=== PATIENT | male | born 1950 | race Caucasian/White ===

== ENCOUNTER → 2021-10-31 11:31 | Outpatient (CLI) | payer MEDICARE, OTHER, SELFPAY ==
--- NOTE | 2021-10-31 11:39 | DI.RAD.S_ITS ---
PROCEDURE: XR LUMBAR SPINE MIN 4V INDICATIONS: BACK PAIN TECHNIQUE: 5 views of the lumbar spine were acquired, including bilateral oblique views. COMPARISON: [facility], , SPINE LUMB 2 OR 3VW, 09/23/2013, 13:28. FINDINGS: Bones: 5 nonrib-bearing vertebrae are present. There is normal bony alignment. No vertebral body compression fractures. No suspicious bony lesions. Mild degenerative disc changes noted throughout the lumbar spine. Mild L4-L5 and L5-S1 facet arthropathy. Soft tissues: Overlying bowel gas pattern is normal. Coarse calcifications project over the lower midline of the pelvis possibly related to the prostate gland. Oblique images: No pars defects. IMPRESSION: 1. Multilevel degenerative disc disease. 2. Multilevel facet arthropathy. 3. No fracture. No acute osseous lesion. If symptoms and/or clinical suspicion for pathology persists, evaluation with MRI should be considered for further assessment. Dictated by: Barbara Madison MD, PhD on 10/31/2021 at 13:32 Approved by: Barbara Madison MD, PhD on 10/31/2021 at 13:33
== END ==
PROVIDERS: Referring Provider Physical Medicine & Rehabilitation; Visit Provider Physical Medicine & Rehabilitation
DX: M47.26 Other spondylosis with radiculopathy, lumbar region (principal); M47.27 Other spondylosis with radiculopathy, lumbosacral region; M51.16 Intervertebral disc disorders with radiculopathy, lumbar region; M99.04 Segmental and somatic dysfunction of sacral region; M54.9 Dorsalgia, unspecified
CPT/HCPCS: 72110; 99214

== ENCOUNTER → 2021-11-12 11:13 | Outpatient (CLI) | payer MEDICARE, OTHER, SELFPAY ==
--- NOTE | 2021-11-12 11:15 | DI.MRI.S_ITS ---
PROCEDURE: MR LUMBAR SPINE WO CON INDICATIONS: right LE radicu L5 TECHNIQUE: Noncontrast sagittal T1 spin echo and T2 fast echo, sagittal STIR, and T2 fast spin echo through the lumbar spine. In cases with scoliosis, additional coronal T2 fast spin echo may be performed. COMPARISON: [facility], CR, XR LUMBAR SPINE MIN 4V, 10/31/2021, 11:40. FINDINGS: Image quality: Excellent. Alignment and Curvature: There is normal bony alignment. Bone Marrow: Marrow is of normal overall signal. No acute vertebral body compression fractures. Spinal Cord: Conus medullaris terminates at the L1 level. Visualized cord demonstrates normal signal and size. Paraspinous Soft Tissues: No paravertebral masses. Discs: Mild multilevel disc desiccation is present. L1-L2: Minimal disc bulge without spinal stenosis or foraminal narrowing. Minimal epidural lipomatosis as well as mild facet and ligamentum flavum hypertrophy. L2-L3: Minimal disc bulge without spinal stenosis. Minimal right foraminal narrowing with facet and ligamentum flavum hypertrophy. Minimal epidural lipomatosis. L3-L4: Mild disc bulge without spinal stenosis. [id number] left and mild right foraminal narrowing with facet and ligamentum flavum hypertrophy. Epidural lipomatosis is also present. L4-L5: Mild disc bulge with minimal canal narrowing. Moderate bilateral foraminal narrowing with facet and ligamentum flavum hypertrophy. Minimal epidural lipomatosis. L5-S1: Minimal disc bulge without spinal stenosis. Moderate left and [id number] right foraminal narrowing with facet hypertrophy. IMPRESSION: Multilevel disc bulges. Minimal spinal stenosis at L4-5 secondary to disc bulge with contributing effect of facet/ligamentum flavum arthropathy. Moderate bilateral foraminal narrowing at L4-5 and L5-S1 secondary to facet arthropathy. Dictated by: Nilsa Cisneros M.D. on 11/12/2021 at 12:07 Approved by: Nilsa Cisneros M.D. on 11/12/2021 at 12:10
== END ==
PROVIDERS: PCP Family Medicine; Referring Provider Physical Medicine & Rehabilitation; Visit Provider Physical Medicine & Rehabilitation
DX: M51.16 Intervertebral disc disorders with radiculopathy, lumbar region (principal); M48.061 Spinal stenosis, lumbar region without neurogenic claudication; M48.07 Spinal stenosis, lumbosacral region; M47.26 Other spondylosis with radiculopathy, lumbar region; M47.27 Other spondylosis with radiculopathy, lumbosacral region
CPT/HCPCS: 72148

== ENCOUNTER → 2021-12-03 10:21 | Outpatient (CLI) | payer MEDICARE, OTHER, SELFPAY ==
[2021-12-03 11:33] LABS: COVID19 -Nasal RAPID Negative (Negative)
== END ==
PROVIDERS: PCP Family Medicine; Visit Provider Physical Medicine & Rehabilitation
DX: Z20.822 Contact with and (suspected) exposure to COVID-19 (principal)
CPT/HCPCS: 87635; C9803

== ENCOUNTER 2021-12-04 12:38 | Outpatient (CLI) | payer MEDICARE, OTHER, SELFPAY ==
[2021-12-04] VITALS (8 sets, daily range): BP systolic 133–162; BP diastolic 65–91; PULSE 69–83; RESP 14–20; TEMP 37.2; O2SAT 95–98
--- NOTE | 2021-12-04 13:30 | DI.RAD.S_ITS ---
PROCEDURE: PAIN L/SI FACET INJ/BLK 1STL INDICATIONS: SPONDYLOSIS COMPARISON: [facility], MR, MR LUMBAR SPINE WO CON, 11/12/2021, 11:34. [facility], CR, XR LUMBAR SPINE MIN 4V, 10/31/2021, 11:40. FINDINGS: Fluoroscopic spot filming was performed to verify placement of spinal needles on the right at the L3-L4, L4-L5, and L5-S1 levels, as labeled on the films. Appropriate location of the needle tips was confirmed by injection of iodinated contrast. IMPRESSION: Intraprocedural examination demonstrating appropriate positions of the needles. Dictated by: Gianni German M.D. on 12/04/2021 at 13:39 Approved by: Gianni German M.D. on 12/04/2021 at 13:40
[2021-12-04] MEDS: MIDAZOLAM 2 MG/2 ML VIAL IV (13:55)
[2021-12-04] MEDS: IOPAMIDOL 15 ML VIAL 3 ML INJ (14:02)
[2021-12-04] MEDS: BETAMETHASONE 30 MG/5 ML MDV (14:03)
[2021-12-04] MEDS: BUPIVACAINE 0.5% (PF) VIAL 5 ML INJ (14:03)
--- NOTE | 2021-12-04 14:08 | P.PCN_ITS ---
Date/Time/Diagnoses Date of procedure: 12/04/21 Time of procedure: 14:08 Pre-procedure diagnosis: 1. FACET ARTHROPATHY 2. AXIAL LBP 3. MULTILEVEL DDD Post-procedure diagnosis: same Procedure Notes Procedure: 1. FLUOROSCOPICALLY GUIDED CONTRAST CONTROLLED FACET JOINT INJECTIONS RIGHT L3/4, L4/5, L5/S1 Indications: Junaid is referred by Dr. Barker for treatment of Axial LBP Physician: Tom Mascorro Total Fluoroscopy time (seconds): 8 Total sedation minutes: 12 Complications: none Procedure in detail & Post-procedure care: FINDINGS Multilevel Facet Arthropathy with Clinically significant axial LBP DESCRIPTION OF PROCEDURE Fluoroscopically guided, contrast-controlled right L3/4, L4/5, L5/S1 facet joint injections. Following review of allergy and review of potential side effects and complications, including, but not necessarily limited to, infection, allergic reaction, local tissue breakdown, stroke, temporary or permanent nerve injury, paralysis, and possible , the patient indicated that the patient understood and agreed to proceed. An informed consent document was signed by the patient, witnessed by a nurse, and placed in the patient's chart. Additionally, other treatment options including medications, modalities, and physical therapy were reviewed with the patient. After review of previous anaesthesic history and IV conscious sedation the patient was deemed safe to proceed with today?s procedure with IV conscious sedation as ASA class II designation. Safety time-out was performed to confirm patient ID, procedure to be performed and site of procedure. IV sedation was accomplished with a combination of 2mg of Versed was administered by the RN after DO order, titrated to patient comfort during the course of the procedure while the patient remained responsive to all verbal commands. In the prone position, following sterile prep and drape of the lumbar region, the posterior aspect of the right L3/4, L4/5, L5/S1 facet joints were identified fluoroscopically. The skin was anesthetized via a 25-gauge 1.5-inch needle with 1% lidocaine solution into the corresponding facet joints. At this point, a 22- gauge 3.5-inch spinal needle was atraumatically introduced and advanced under fluoroscopic guidance into the corresponding facet joints. Following negative aspiration, injections of approximately 0.2-cc of Isovue 200 confirmed interarticular placement without vascular uptake. Radiological data, including multiple fluoroscopic views of the lumbosacral spine, reveal a spinal needle at the right L3/4, L4/5, L5/S1 facet joints. Subsequent views show flow of contrast material both superiorly and inferiorly within the joint space without vascular or intrathecal uptake. At this point, a total of 0.5cc including a mixture of 0.25cc Marcaine and 0.25cc betamethasone was injected without complication into each of the corresponding facet joints. The procedure tolerated the procedure well without signs or symptoms of complications prior to transfer to the recovery area continued monitoring without incident. The patient was then transferred to the recovery area where they were observed for an appropriate period of time after the injection. The patient reported a VAS score of 7 prior to the procedure and a post-procedure VAS of 0. POST OP INSTRUCTIONS The patient was provided a Pain Log to continue to record their response to the target-specific procedure prior to follow-up visit with their referring physician. Additionally, specific post-injection care instructions and a contact number to our office were provided if concerns arise regarding possible complications associated with the procedure are suspected.
== END 2021-12-04 14:27 | disposition home or self-care (01) ==
LOC: RAD 12:41
PROVIDERS: PCP Family Medicine; Referring Provider Physical Medicine & Rehabilitation; Visit Provider Physical Medicine & Rehabilitation
DX: M47.816 Spondylosis without myelopathy or radiculopathy, lumbar region (principal); M47.817 Spondylosis without myelopathy or radiculopathy, lumbosacral region; M51.36 Other intervertebral disc degeneration, lumbar region; M51.37 Other intervertebral disc degeneration, lumbosacral region
CPT/HCPCS: 64493; 64494; 64495; 99152; J0702; J2250

== ENCOUNTER → 2022-04-22 10:11 | Outpatient (CLI) | payer MEDICARE, OTHER, SELFPAY ==
[2022-04-22 13:44] LABS: COVID19 -Nasal RAPID Negative (Negative)
== END ==
PROVIDERS: PCP Family Medicine; Visit Provider Physical Medicine & Rehabilitation
DX: Z20.822 Contact with and (suspected) exposure to COVID-19 (principal)
CPT/HCPCS: 87635; C9803

== ENCOUNTER 2022-04-23 09:08 | Outpatient (CLI) | payer MEDICARE, OTHER, SELFPAY ==
[2022-04-23] VITALS (9 sets, daily range): BP systolic 122–150; BP diastolic 61–86; PULSE 48–54; RESP 14–24; TEMP 36.4; O2SAT 96–99
--- NOTE | 2022-04-23 09:11 | DI.RAD.S_ITS ---
PROCEDURE: PAIN SI JOINT INJECTION INDICATIONS: SACROILIAC DISORDER COMPARISON: [facility], XA, PAIN L/SI FACET INJ/BLK 1STL, 12/04/2021, 13:59. [facility], CR, XR LUMBAR SPINE MIN 4V, 10/31/2021, 11:40. [facility], RG, XR PELVIS 1V, 07/03/2021, 11:09. FINDINGS: On these intraprocedural images, there is a spinal needle seen overlying the inferior aspect of the right sacroiliac joint. Appropriate position of the tip of the needle was confirmed by injection of a small amount of iodinated contrast. IMPRESSION: Successful sacroiliac joint injection. Dictated by: Gianni German M.D. on 04/23/2022 at 9:58 Approved by: Gianni German M.D. on 04/23/2022 at 9:58
[2022-04-23] MEDS: MIDAZOLAM 2 MG/2 ML VIAL IV (10:18)
[2022-04-23] MEDS: BUPIVACAINE 0.5% (PF) VIAL 2 ML INJ (10:21)
[2022-04-23] MEDS: IOPAMIDOL 15 ML VIAL 3 ML INJ (10:21)
[2022-04-23] MEDS: BETAMETHASONE 30 MG/5 ML MDV 12 MG INJ (10:22)
--- NOTE | 2022-04-23 10:31 | P.PCN_ITS ---
Date/Time/Diagnoses Date of procedure: 04/23/22 Time of procedure: 10:31 Pre-procedure diagnosis: Sacroiliac joint pain/DJD Post-procedure diagnosis: same Procedure Notes Procedure: Fluoroscopically guided contrast controlled right sacroiliac joint injection Indications: Junaid is referred by Dr. Barker for treatment of right sacroiliac joint DJD Physician: Tom Mascorro Total Fluoroscopy time (seconds): 7 Total sedation minutes: 8 Complications: none Procedure in detail & Post-procedure care: DESCRIPTION OF PROCEDURE Fluoroscopically guided, contrast controlled right sacroiliac joint injection Following review of allergies and review of potential side effects and complications, including, but not necessarily limited to, infection, allergic reaction, local tissue breakdown, temporary as well as permanent nerve injury, paralysis, stroke and possible , the patient indicated that they understood and agreed to proceed. An informed consent was signed by the patient, witnessed by a nurse, and placed in the patient's chart. Additionally, other treatment options including modalities, medications, and physical therapy were reviewed with the patient. After review of previous anaesthesic history and IV conscious sedation the patient was deemed safe to proceed with today?s procedure with IV conscious sedation as ASA class II designation. Safety time-out was performed to confirm patient ID, procedure to be performed and site of procedure. IV sedation was accomplished with a combination of 2mg of Versed was administered by the RN after DO order, titrated to patient comfort during the course of the procedure while the patient remained responsive to all verbal commands In the prone position following sterile prep and drape of the pelvic region, the hyper lucency on in the inferior aspect of the sacroiliac joint was identified fluoroscopically the skin was anesthetized be a 25 gauge 1 eventual with approximately 2 cc of 1% lidocaine solution. At this point, a 22 gauge 3 in sp inal needle was atraumatically introduced and advanced under fluoroscopic guidance into the inferior aspect of the right sacroiliac joint. Following negative aspiration, approximately 0.3cc of Isovue-300 was injected confirming intra-articular placement without vascular uptake. Radiographic data, including multiple fluoroscopic views of the pelvis, reveals a spinal needle in the sacroiliac joint hyper lucent zone. Subsequent view show flow contrast tear superiorly and inferiorly within the joint capsule without vascular intrathecal uptake. At this point a total of 1cc of 0.5% Marcaine was combined with 1cc of 6 mg of betamethasone was injected without incident. The procedure tolerated the procedure well without signs or symptoms of complications prior to transfer to the recovery area continued monitoring without incident. The patient was then transferred to the recovery area with a bur observed for an appropriate time after the injection. The patient reverted a vas score of 7 prior to the procedure and post-procedure vas of 1. POSTOP INSTRUCTIONS The patient was provided with a pain like to continue to record the patient's response to the target specific procedure prior to the patient's follow-up visit with the referring physician. Additionally, specific post injection care instructions and a contact number to our office were provided if concerns arise regarding the possible complications associated with procedure are suspected.
== END 2022-04-23 10:50 | disposition home or self-care (01) ==
LOC: RAD 09:10
PROVIDERS: PCP Family Medicine; Referring Provider Physical Medicine & Rehabilitation; Visit Provider Physical Medicine & Rehabilitation
DX: M53.3 Sacrococcygeal disorders, not elsewhere classified (principal)
CPT/HCPCS: 27096; J0702; J2250

== ENCOUNTER → 2022-11-09 11:21 | Outpatient (CLI) | payer MEDICARE, OTHER, SELFPAY ==
--- NOTE | 2022-11-09 | DI.MRI.S_ITS ---
PROCEDURE: MR HAND RT WO CON INDICATIONS: Unilateral primary osteoarthritis of first carpome TECHNIQUE: Noncontrast coronal T1 spin echo and T2 fast spin echo with fat saturation, axial proton density fast spin echo and T2 fast spin echo with fat saturation, sagittal T1 spin echo and STIR through the hand and fingers. COMPARISON: [facility], CR, XR HAND 3+ VIEWS RIGHT, 10/04/2022, 9:32. [facility], CR, XR HAND 1 OR 2 VIEWS RIGHT, 10/15/2022, 10:24. FINDINGS: Image quality: Excellent. Bones: No acute trabecular bone injury or fracture. Mildly irregular appearance of the triquetrum, hamate, and 5th metacarpal base, which is likely related to remote prior trauma. Carpal bones are normally aligned. At there is full-thickness cartilage loss throughout the 1st carpometacarpal joint with subchondral cystic changes and subchondral edema as well as marginal osteophyte formation and mild remodeling of the articular surfaces. Moderate triscaphe osteoarthrosis is present. Scattered moderate degenerative changes are seen in the interphalangeal joints of the fingers. A small joint effusion is seen at the 2nd metacarpophalangeal joint. Soft tissues: Mild tendinosis of the 1st extensor compartment tendons is noted. There is also mild tendinosis of the extensor carpi ulnaris tendon. The remaining extensor compartment tendon compartments are grossly intact. The flexor and extensor tendons throughout the remainder of the hand are intact. The radial collateral ligament at the 2nd metacarpophalangeal joint appears thickened and intermediate in signal intensity. The ulnar collateral ligament is intact. The remaining visualized ligaments in the hand are intact. Visualized muscles demonstrate normal bulk and internal signal. No intramuscular masses identified. No ganglion cysts. IMPRESSION: 1. Severe 1st carpometacarpal joint osteoarthrosis. Moderate degenerative changes at the triscaphe joint and throughout the interphalangeal joints of the fingers. 2. Thickening and intermediate signal intensity of the radial collateral ligament at the 2nd metacarpophalangeal joint is suspicious for an acute or subacute grade 1-2 sprain. There is surrounding soft tissue edema and a 2nd metacarpophalangeal joint effusion. 3. Probable chronic posttraumatic changes at the ulnar aspect of the wrist involving the 5th carpometacarpal joint and the triquetrum with [id number] superimposed degenerative changes. No acute osseous fracture identified. 4. Mild extensor pollicis brevis and abductor pollicis longus tendinosis. Mild extensor carpi ulnaris tendinosis. Approved by: Rboerto Choi M.D. on 11/12/2022 at 9:31
== END ==
PROVIDERS: PCP Family Medicine; Referring Provider Orthopaedic Surgery; Visit Provider Orthopaedic Surgery
DX: M18.11 Unilateral primary osteoarthritis of first carpometacarpal joint, right hand (principal); M25.441 Effusion, right hand
CPT/HCPCS: 73218

== ENCOUNTER 2023-04-08 10:22 | Outpatient (CLI) | payer MEDICARE, OTHER, SELFPAY ==
[2023-04-08] VITALS (8 sets, daily range): BP systolic 154–186; BP diastolic 70–88; PULSE 56–62; RESP 16–24; TEMP 36.5; O2SAT 95–97
--- NOTE | 2023-04-08 10:23 | DI.RAD.S_ITS ---
PROCEDURE: PAIN L/SI FACET INJ/BLK 1STL INDICATIONS: FACET ARTHROPATHY COMPARISON: [facility], , PAIN L/SI FACET INJ/BLK 1STL, 12/04/2021, 13:59. FINDINGS: Fluoroscopic spot filming was performed to verify placement of spinal needles on the right at the L3, L4, L5, and S1 levels, as labeled on the films. Appropriate location of the needle tips was confirmed by injection of iodinated contrast. IMPRESSION: Intraprocedural examination demonstrating appropriate positions of the needles. Dictated by: Gianni German M.D. on 04/08/2023 at 19:54 Approved by: Gianni German M.D. on 04/08/2023 at 19:55
[2023-04-08] MEDS: MIDAZOLAM 2 MG/2 ML VIAL IV (11:55)
[2023-04-08] MEDS: IOPAMIDOL 15 ML VIAL 3 ML INJ (12:00)
[2023-04-08] MEDS: BUPIVACAINE 0.5% (PF) 10 ML VIAL 2 ML INJ (12:00)
--- NOTE | 2023-04-08 12:17 | P.PCN_ITS ---
Date/Time/Diagnoses Date of procedure: 04/08/23 Time of procedure: 12:17 Pre-procedure diagnosis: 1. FACET ARTHROPATHY Post-procedure diagnosis: same Procedure Notes Procedure: 1. Right L3, L4, L5 and S1 MB BLOCKS LA Indications: David is referred by LEE Mora for treatment of Right Axial LBP. Physician: Tom Mascorro Total Fluoroscopy time (seconds): 7 Total sedation minutes: 16 Complications: none Procedure in detail & Post-procedure care: DESCRIPTION OF PROCEDURE Fluoroscopically guided, contrast-controlled right L3, L4, L5 and S1 medial branch blocks with 0.5cc of 0.5% Marcaine. Following review of allergy and review of potential side effects and complications, including, but not necessarily limited to, infection, allergic reaction, local tissue breakdown, nerve injury, paralysis, stroke and possible , the patient indicated that the patient understood and agreed to proceed. An informed consent document was signed by the patient, witnessed by a nurse, and placed in the patient's chart. After review of previous anaesthesic history and IV conscious sedation the patient was deemed safe to proceed with today?s procedure with IV conscious sedation as ASA class II designation. Safety time-out was performed to confirm patient ID, procedure to be performed and site of procedure. IV sedation was accomplished with a combination of 2mg of Versed was administered by the RN af ter DO order, titrated to patient comfort during the course of the procedure while the patient remained responsive to all verbal commands In the prone position, following sterile prep and drape of the lumbar region, the right L3, L4, L5 and S1 anatomical location of the medial branch of the dorsal ramus was identified fluoroscopically. Subsequently an anesthetic skin wheal using 1% lidocaine solution was initiated at each of the anatomical spots. Subsequently then a 22-gauge 3.5-inch spinal needle was atraumatically introduced and advanced under fluoroscopic guidance at each of the corresponding sites at the right L3, L4, L5 and S1 MB. After negative aspiration, 0.2cc of Isovue 200 was injected, confirming placement without vascular or intrathecal uptake. Subsequently then 0.5cc of 0.5% Marcaine solution was injected at each of the corresponding sites at the right L3, L4, L5 and S1 medial branch locations. The patient tolerated the procedure well without signs or symptoms of complications. The procedure tolerated the procedure well without signs or symptoms of complications prior to transfer to the recovery area continued monitoring without incident. Post-procedure, the patient was monitored initiating provocative activities to measure the amount of relief from block of the facetogenic pain. The patient reported a VAS of 7 prior to the procedure and a post-procedure VAS of 1. It has been a pleasure to assist in the diagnostic and therapeutic care of your patient. POST OP INSTRUCTIONS The patient was provided with a Pain Log to complete over the next several hours and subsequent days prior to the patient's follow up with the ordering physician. If the patient has physiological chemist relief to the solution applied, then they may be a candidate for medial branch rhizotomy. The patient is aware, was provided, once again, with a Pain Log and will follow up with the referring physician for review and clinical correlation.
== END 2023-04-08 12:32 | disposition home or self-care (01) ==
LOC: RAD 10:22
PROVIDERS: PCP Nurse Practitioner Family; Referring Provider Physical Medicine & Rehabilitation; Visit Provider Physical Medicine & Rehabilitation
DX: M47.816 Spondylosis without myelopathy or radiculopathy, lumbar region (principal); M47.817 Spondylosis without myelopathy or radiculopathy, lumbosacral region
CPT/HCPCS: 64493; 64494; 64495; 99152; J2250

== ENCOUNTER 2023-06-03 12:23 | Outpatient (CLI) | payer MEDICARE, OTHER, SELFPAY ==
[2023-06-03] VITALS (8 sets, daily range): BP systolic 128–164; BP diastolic 68–88; PULSE 64–87; RESP 11–20; TEMP 36.2; O2SAT 94–96
--- NOTE | 2023-06-03 12:24 | DI.RAD.S_ITS ---
PROCEDURE: PAIN L/SI FACET INJ/BLK 1STL INDICATIONS: SPONDYLOSIS COMPARISON: [facility], , PAIN L/SI FACET INJ/BLK 1STL, 04/08/2023, 12:01. FINDINGS: Fluoroscopic spot filming was performed to verify placement of spinal needles at the right L3, L4, L5 and S1 pedicle level(s), as labeled on the films. Appropriate location(s) of the needle tip(s) was confirmed by injection of iodinated contrast. IMPRESSION: Access needles positioned for right L3, L4, L5 and S1 medial branch block. Dictated by: Barbara Madison MD, PhD on 06/03/2023 at 14:52 Approved by: Barbara Madison MD, PhD on 06/03/2023 at 14:52
[2023-06-03] MEDS: MIDAZOLAM 2 MG/2 ML VIAL IV (14:13)
[2023-06-03] MEDS: LIDOCAINE 2% INJ SDV 5ML 2 ML INJ (14:22)
[2023-06-03] MEDS: iopamidoL 15 ML VIAL 3 ML INJ (14:22)
--- NOTE | 2023-06-03 14:29 | PM.PROC.IR.1 ---
Date/Time/Diagnoses Date of procedure: 06/03/23 Time of procedure: 14:29 Pre-procedure diagnosis: 1. FACET ARTHROPATHY Post-procedure diagnosis: same Procedure Notes Procedure: 1. Right L3, L4, L5 and S1 MB BLOCKS LA Indications: David is referred by LEE Mora for treatment of Right Axial LBP. Physician: Tom Mascorro Total Fluoroscopy time (seconds): 7 Total sedation minutes: 11 Complications: none Procedure in detail & Post-procedure care: DESCRIPTION OF PROCEDURE Fluoroscopically guided, contrast-controlled right L3, L4, L5 and S1 medial branch blocks with 0.5cc of 0.5% Marcaine. Following review of allergy and review of potential side effects and complications, including, but not necessarily limited to, infection, allergic reaction, local tissue breakdown, nerve injury, paralysis, stroke and possible , the patient indicated that the patient understood and agreed to proceed. An informed consent document was signed by the patient, witnessed by a nurse, and placed in the patient's chart. After review of previous anaesthesic history and IV conscious sedation the patient was deemed safe to proceed with today?s procedure with IV conscious sedation as ASA class II designation. Safety time-out was performed to confirm patient ID, procedure to be performed and site of procedure. IV sedation was accomplished with a combination of 2mg of Versed was administered by the RN after DO order, titrated to patient comfort during the course of the procedure while the patient remained responsive to all verbal commands In the prone position, following sterile prep and drape of the lumbar region, the right L3, L4, L5 and S1 anatomical location of the medial branch of the dorsal ramus was identified fluoroscopically. Subsequently an anesthetic skin wheal using 1% lidocaine solution was initiated at each of the anatomical spots. Subsequently then a 22-gauge 3.5-inch spinal needle was atraumatically introduced and advanced under fluoroscopic guidance at each of the corresponding sites at the right L3, L4, L5 and S1 MB. After negative aspiration, 0.2 cc of Isovue 200 was injected, confirming placement without vascular or intrathecal uptake. Subsequently then 0.5 cc of 0.5% Marcaine solution was injected at each of the corresponding sites at the right L3, L4, L5 and S1 medial branch locations. The patient tolerated the procedure well without signs or symptoms of complications. The procedure tolerated the procedure well without signs or symptoms of complications prior to transfer to the recovery area continued monitoring without incident. Post-procedure, the patient was monitored initiating provocative activities to measure the amount of relief from block of the facetogenic pain. The patient reported a VAS of 7 prior to the procedure and a post-procedure VAS of 1. It has been a pleasure to assist in the diagnostic and therapeutic care of your patient. POST OP INSTRUCTIONS The patient was provided with a Pain Log to complete over the next several hours and subsequent days prior to the patient's follow up with the ordering physician. If the patient has injection mold technician relief to the solution applied, then they may be a candidate for medial branch rhizotomy. The patient is aware, was provided, once again, with a Pain Log and will follow up with the referring physician for review and clinical correlation.
== END 2023-06-03 14:50 | disposition home or self-care (01) ==
PROVIDERS: PCP Nurse Practitioner Family; Referring Provider Physical Medicine & Rehabilitation; Visit Provider Physical Medicine & Rehabilitation
DX: M47.816 Spondylosis without myelopathy or radiculopathy, lumbar region (principal); M47.817 Spondylosis without myelopathy or radiculopathy, lumbosacral region
CPT/HCPCS: 64493; 64494; 64495; 99152; J2250

== ENCOUNTER 2023-07-24 07:11 | Outpatient (CLI) | payer MEDICARE, OTHER, SELFPAY ==
[2023-07-24] VITALS (12 sets, daily range): BP systolic 111–151; BP diastolic 62–116; PULSE 59–69; RESP 14–20; TEMP 36.7; O2SAT 95–98
--- NOTE | 2023-07-24 08:00 | DI.RAD.S_ITS ---
PROCEDURE: PAIN L/S MED/LAT N RFA INDICATIONS: spondylosis COMPARISON: [facility], XR LUMBAR SPINE MIN 4V, 10/31/2021, 11:40. FINDINGS: Fluoroscopic spot filming was performed to verify placement of spinal needles at the right L3-S1 level(s), as labeled on the films. Appropriate location(s) of the needle tip(s) was confirmed by injection of iodinated contrast. IMPRESSION: Intraoperative guidance provided. Dictated by: Dhruv Todd M.D. on 07/24/2023 at 11:27 Approved by: Dhruv Todd M.D. on 07/24/2023 at 11:29
[2023-07-24] MEDS: MIDAZOLAM 2 MG/2 ML VIAL IV (08:02)
[2023-07-24] MEDS: fentaNYL 100 MCG/2 ML INJ 50 MCG IV ×2 (08:08→08:20)
[2023-07-24] MEDS: BUPIVACAINE 0.5% (PF) 10 ML VIAL 5 ML INJ (08:11)
[2023-07-24] MEDS: LIDOCAINE 1% 20 ML 5 ML INJ (08:13)
--- NOTE | 2023-07-24 08:37 | P.PCN_ITS ---
Date/Time/Diagnoses Date of procedure: 07/24/23 Time of procedure: 08:37 Pre-procedure diagnosis: 1. RECALCITRANT FACET ARTHROPATHY Post-procedure diagnosis: same Procedure Notes Procedure: 1. RIGHT L3, L4 AND L5 MEDIAL BRANCH RADIOFREQUENCY NEUROTOMY AND RIGHT S1 DORSAL RAMUS BRANCH RADIOFREQUENCY NEUROTOMY Indications: David is referred by LEE Mora for treatment of facet arthropathy. Physician: Tom Mascorro Total Fluoroscopy time (seconds): 18 Total sedation minutes: 30 Complications: none Procedure in detail & Post-procedure care: DESCRIPTION OF PROCEDURE Right L4 and L5 medial branch radiofrequency neurotomy and right S1 dorsal ramus branch radiofrequency neurotomy under fluoroscopy with conscious sedation. The patient is well known to this clinic having undergone previous facet in jections with good but temporary relief. The patient has experienced appropriate, concordant relief with previous facet and median branch blocks but the patient's pain has been recalcitrant to further conservative measures. Therefore, based upon the patient's relief and persistent symptoms, the patient is considered an appropriate candidate for facet rhizotomy. All of the patient's questions regarding the risks versus benefits of the procedure, including, but not limited to, bleeding, infection, temporary as well as lasting nerve injury, paralysis, stroke, and , as well treatment alternatives were answered to satisfaction. After review of previous anaesthesic history and IV conscious sedation the patient was deemed safe to proceed with today?s procedure with IV conscious sedation as ASA class II designation. Safety time-out was performed to confirm patient ID, procedure to be performed and site of procedure. IV sedation was accomplished with a combination of 2mg of Versed and 100mcg of Fentanyl was administered by the RN after DO order, titrated to patient comfort during the course of the procedure while the patient remained responsive to all verbal commands. After obtaining informed consent, denial of pertinent drug allergies, as well as being made aware of the potential risks of bleeding, infection, spinal cord trauma, paralysis, temporary and permanent nerve damage, seizure, stroke, and possible , the patient was brought to the fluoroscopy suite and positioned prone on the fluoroscopy table. The lumbar region was prepped with Betadine and covered with a fenestrated drape in the usual sterile fashion. Appropriate monitors applied including pulse oximeter, pulse, and blood pressure for regular monitoring throughout the procedure. After local infiltration using 1% lidocaine, under fluoroscopic guidance, a 10- cm RF insulated needle with a 10-mm active tip was positioned parallel to the junction of the right sacral ala and the superior articulating process where the S1 dorsal ramus resides. Needle placement was confirmed with sensory stimulation at 50 Hz, with motor stimulation of .5v on the right which produced local stimulation without radicular component. The stimulation was then increased to 2v with, once again, only local multifidus stimulation without radicular component. This was then followed by two discreet lesions performed at 80 degrees Celsius for 90 seconds each. The needle was then removed and the identical procedure was performed along the length of the right L5 medial branch with motor stimulation at .7v on the right. The identical procedure was once again performed along the length of the right L4 medial branch with motor stimulation of .5v on the right. The identical procedure was once again performed along the length of the right L3 medial branch with motor stimulation of .5v on the right. The patient tolerated the procedure well without signs or symptoms of complications prior to transfer to the recovery area continued monitoring without incident. The patient was then transferred to the recovery area where they were observed for an appropriate period of time after the injection. The patient was then transferred to the recovery area where they were observed for an appropriate period of time after the injection. The patient reported a VAS score of 8 prior to the procedure and a post-procedur e VAS of 1. POST OP INSTRUCTIONS The patient was provided a Pain Log to continue to record the patient's response to the target-specific procedure prior to the patient's follow-up visit with the referring physician. Additionally, specific post-injection care instructions and a contact number to our office were provided if concerns arise regarding possible complications associated with the procedure are suspected.
== END 2023-07-24 09:00 | disposition home or self-care (01) ==
LOC: RAD 07:12
PROVIDERS: PCP Nurse Practitioner Family; Referring Provider Physical Medicine & Rehabilitation; Visit Provider Physical Medicine & Rehabilitation
DX: M47.816 Spondylosis without myelopathy or radiculopathy, lumbar region (principal); M47.817 Spondylosis without myelopathy or radiculopathy, lumbosacral region
CPT/HCPCS: 64635; 64636; 99152; 99153; J2250; J3010

== ENCOUNTER → 2023-10-02 09:12 | Outpatient (CLI) | payer MEDICARE, OTHER, SELFPAY ==
--- NOTE | 2023-10-02 19:57 | DI.NM.S_ITS ---
DATE OF SERVICE: 10/02/2023 PROCEDURE: Pharmacologic Perfusion Study INDICATIONS: Significant coronary artery calcification involving LAD, circumflex and right coronary artery with total score 2,294 with hypertension, hyperlipidemia. RADIOPHARMACEUTICAL: 25.3 mCi technetium-99m Myoview IV was injected at stress and 11.8 mCi technetium-99m Myoview IV was injected at rest. CARDIAC STRESS: Initially, patient attempted exercise stress test. He walked on Mikal protocol for about 4 minutes and 10 seconds, however, achieved only 80% target heart rate and had significant dyspnea with KIP positive 31%. Baseline rhythm was sinus. During exercise, there was up to 1 to [address] depression in inferior leads and leads V3 to V6. Test was converted to intravenous Lexiscan. The patient was given IV Lexiscan as per protocol. During exercise, peak blood pressure 170/70 mmHg. Resting blood pressure was 128/54 mmHg. During Lexiscan, patient continued to have ST depression in the inferolateral leads, which persisted about 20 minutes into the recovery. During Lexiscan, patient did not have any significant chest pain or shortness of breath or nausea or diaphoresis. Around 20 minutes into the recovery, patient was given one sublingual nitroglycerin and ST depression got resolved. KIP positive 31%. RAW DATA: There is increased subdiaphragmatic activity. GATED STUDY: Stress LV ejection fraction 88% without any obvious wall motion abnormalities. Resting end-diastolic volume 89 mL. TID ratio 0.90, which is within normal limits. Lung/heart ratio 0.41 which is within normal limits. MYOCARDIAL PERFUSION SCAN: Resting supine images revealed small size, mildly decreased perfusion of distal inferolateral wall. However, stress supine and stress prone images revealed normal myocardial perfusion. CONCLUSION: As far as perfusion scan is concerned, this is a normal myocardial perfusion. However, the patient has significant ST depression during exercise and Lexiscan up to 2 mm in inferior leads and leads V3 to V6, which persisted 20 minutes into the recovery and responded to one sublingual nitroglycerin. During exercise, patient had significant shortness of breath. Considering abnormal prolonged EKG changes, responding to sublingual nitroglycerin, significant dyspnea during exertion with known severe coronary artery calcification, consider further evaluation with left heart catheterization even though perfusion scan appears to be normal. The patient may have balanced ischemia which will result in normal myocardial perfusion. David Arnold - DANILO/mykel/dewey doc#: [id number]/job#: [id number] dd: 10/02/2023 16:46:00 dt: 10/02/2023 19:39:00 DICTATING /COPIES TO: Jagdish Melendez MD COPIES MNE: DOMINIK;
== END ==
LOC: NUCM 09:13
PROVIDERS: PCP Nurse Practitioner Family; Referring Provider Internal Medicine Cardiovascular Disease; Visit Provider Internal Medicine Cardiovascular Disease
DX: I25.10 Atherosclerotic heart disease of native coronary artery without angina pectoris (principal); R94.31 Abnormal electrocardiogram [ECG] [EKG]; R93.1 Abnormal findings on diagnostic imaging of heart and coronary circulation; I10 Essential (primary) hypertension; E78.5 Hyperlipidemia, unspecified
CPT/HCPCS: 78452; 93017; A9502; J2785